=== PATIENT | male | born 1950 | race Caucasian/White ===

== ENCOUNTER 2017-03-22 21:20 | Emergency (ER) | payer MEDICARE ==
[2017-03-22 21:58] VITALS: RESP 20
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
[2017-03-22 23:54] VITALS: BP 130/70; PULSE 92; TEMP 97.8; O2SAT 100
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
== END 2017-03-22 23:54 | disposition home or self-care (01) ==
LOC: C.ER 21:20
DX: S09.90XA Unspecified injury of head, initial encounter (principal); Y04.2XXA Assault by strike against or bumped into by another person, initial encounter; Y92.89 Other specified places as the place of occurrence of the external cause